=== PATIENT | male | born 1965 | race Caucasian/White ===

== ENCOUNTER 2017-05-06 02:32 | Day surgery (SDC) | payer BC ==
[~2017-05-06] VITALS: Ht 180.3 cm; Wt 101.6 kg
[~2017-05-06 02:32] MED LIST: ALLO-119 PO; AMLO-104 PO; AMO500 PO; ARI10 PO; ATO10 PO; ATOR10TA24 PO; AUG500 PO; AZIT-1 PO; AZIT500T47 PO; BENZ100C4 PO; BENZ200C38; CEP500; CEP500 PO; CEPH-13 PO; COM14R IH; DIC75 PO; DOC100 PO; FLUT16SP20 NS; IBU800 PO; INDO-1 PO; INDO25OR3 PO; LIDO20SO21 MM; LISI-357; LISI-357 PO; LOR5 PO; MAGIC; MULT1CAP41 PO; NAP500 PO; OMEP-153 PO; OMEP-218 PO; OMEP10CA40 PO; PENI-22 PO; PER PO; PRE20 PO; PRED-1 PO; QUET100T29 PO; ROBC PO; SENN8.8S6 PO; SUCR1TAB85 PO; TRA50 PO; Z PACK; ZIPR40CA13 PO; [UNRECOGNIZED DRUG - CODE] GT; [UNRECOGNIZED DRUG - REMARK]; no routine meds
[2017-05-06 12:46] VITALS: BP 118/82
--- NOTE | 2017-05-06 13:01 | Post Operative Progress Note ---
Post Operative Progress Note Date: May 06, 2017 Time: 16:04 Surgeon: alon Anesthesia: dr porter Pre-Op Diagnosis: screening colonoscopy and epigastric pain Post-Op Diagnosis: sigmoid diverticulosis and 4 mm polyp at 25 cm small hiatal hernia and mild gastritis Procedure(s): colonoscopy with polypectomy and egd with biopsy HUSAM CHANEY MD May 06, 2017 13:01
--- NOTE | 2017-05-06 13:01 | Short(Outpt) Discharge Summary ---
Discharge Summary Reason for Hosp/Final Diag: (1) Epigastric pain Hospital Course & Plan: hiatal hernia and mild gastritis (2) Encounter for screening colonoscopy Hospital Course & Plan: sigmoid diverticulosis and 4 mm polyp at 25 cm Departure Discharge to: Home Discharge Instructions Home Meds Reported Medications Allopurinol (ZYLOPRIM) 300 Mg Tablet, 300 MG PO QDAY, TAB 05/04/17 Atorvastatin Calcium (LIPITOR) 10 Mg Tablet, 1 TAB PO QDAY, TAB 05/04/17 Omeprazole Magnesium (PRILOSEC OTC) 20 Mg Tablet.dr, 1 TAB PO QDAY TAKE ONE TABLET BY MOUTH ONCE A DAY 05/01/14 Amlodipine Besylate (Norvasc) 10 Mg Tablet, 10 MG PO DAILY 07/05/12 Discontinued Scripts Sucralfate (CARAFATE) 1 Gm Tablet, 1 GM PO QID, #120 TAB 0 Refills Prov:ALLEY PATEL MD 04/19/17 Benzonatate 100 Mg Cap (TESSALON PERLE 100 MG CAP) 100 Mg Capsule, 100 MG PO TID Y for COUGH, #15 CAP 0 Refills Prov:ALLEY PATEL MD 04/19/17 Azithromycin (ZITHROMAX) 250 Mg Tablet, 0 PO QDAY, #6 TAB 0 Refills Take 2 tablets today, then one daily for 4 more days. Prov:ALLEY PATEL MD 04/19/17 Cephalexin (KEFLEX) 500 Mg Capsule, 500 MG PO TID for infection, #30 CAP TAKE ONE CAPSULE BY MOUTH EVERY SIX HOURS Prov:IBRAHIMA IRENE DO 05/01/14 Diet: High Fiber Activity: As Tolerated HUSAM CHANEY MD May 06, 2017 13:01
[2017-05-06] MEDS ORDERED: LIDOCAINE/SOD BICARB 8.4% SYR ID ONE (13:30)
[2017-05-06] MEDS ORDERED: NORMOSOL R SOLN(*) 1000 ML BAG 1,000 ML IV PRN (13:30)
[2017-05-06] MEDS ORDERED: MIDAZOLAM 2 MG/2 ML VIAL IVP PRN (13:30)
[2017-05-06] MEDS ORDERED: PROPOFOL EMUL(*) 10MG/ML 20 ML 0 ML ONE (14:34)
[2017-05-06] MEDS ORDERED: PROPOFOL EMUL(*) 10MG/ML 20 ML 20 ML ONE ×2 (15:32→15:40)
[2017-05-06 15:59] VITALS: BP 112/85
[2017-05-06 16:14] VITALS: BP 102/54
[2017-05-06 16:15] VITALS: BP 105/72
--- NOTE | 2017-05-07 15:34 | OPERATIVE REPORT 1 ---
EVENT DATE: May 06, 2017 SURGEON: Vaughn Cohen MD ANESTHESIOLOGIST: Tony Laurent MD ANESTHESIA: Sedation. PREOPERATIVE DIAGNOSIS Epigastric pain. POSTOPERATIVE DIAGNOSES 1. Small hiatal hernia. 2. Mild gastritis in the body of the stomach. PROCEDURE PERFORMED Esophagogastroduodenoscopy with biopsy of the stomach. DESCRIPTION OF PROCEDURE The patient was placed in the left lateral decubitus position and given intravenous sedation. The flexible gastroscope was inserted. The esophagus appeared to be normal. It distended nicely. No narrowings. No inflammation. GE junction was at 42 cm and distinct. No narrowing was noted. We entered the stomach. We passed through the stomach into the pylorus and second and third portions of the duodenum, which were normal. The duodenal bulb was normal. The pylorus was normal. The antrum was normal. The body of the stomach in the fundus he had some mild erythema, so biopsies were taken. No ulcerations were noted. He had a small hiatal hernia. The patient tolerated the procedure well with no apparent complication. MTDD
--- NOTE | 2017-05-07 15:45 | OPERATIVE REPORT 1 ---
EVENT DATE: May 06, 2017 SURGEON: Vaughn Cohen MD ANESTHESIOLOGIST: Tony Laurent MD ANESTHESIA: Sedation. PREOPERATIVE DIAGNOSIS Screening colonoscopy. POSTOPERATIVE DIAGNOSES 1. Sigmoid diverticulosis. 2. A 4 mm polyp at 25 cm. PROCEDURE PERFORMED Colonoscopy with polypectomy. DESCRIPTION OF PROCEDURE The patient was placed in the left lateral decubitus position and given intravenous sedation. Rectum exam was unremarkable. A flexible colonoscopy was inserted and advanced to the cecum. He had some thick liquid stool lining the right colon. We irrigated that off the best we could, but some of it was quite adherent and made complete visualization of the colonic mucosa in the right colon difficult. We examined the cecum. No abnormalities were noted. The ileocecal valve was identified. The right colon appeared to be normal. The transverse and descending colon were normal. In the sigmoid colon, he had multiple diverticula. No evidence of diverticulitis. At 25 cm, he had a 4 mm polypoid projection. This was removed with polypectomy snare cautery and retrieved. The rest of the rectum was normal. The scope was retroflexed. That appeared to be normal. The patient will require a repeat colonoscopy in five years if that polyp is, indeed, adenomatous. [place]
== END 2017-05-06 16:30 | disposition home or self-care (01) ==
LOC: OR 02:32
PROVIDERS: ATTEND Surgery
DX: Z12.11 Encounter for screening for malignant neoplasm of colon (principal); D12.6 Benign neoplasm of colon, unspecified; K57.30 Diverticulosis of large intestine without perforation or abscess without bleeding; K44.9 Diaphragmatic hernia without obstruction or gangrene; K29.70 Gastritis, unspecified, without bleeding
CPT/HCPCS: 43239; 45385; 88305; 88344; J2704

== ENCOUNTER → 2017-07-20 | Outpatient (CLI) | payer BC | LOC: AUD 08:30 | PROVIDERS: ATTEND Otolaryngology | DX: H91.90 Unspecified hearing loss, unspecified ear (principal); H93.13 Tinnitus, bilateral; J02.9 Acute pharyngitis, unspecified; F17.290 Nicotine dependence, other tobacco product, uncomplicated | CPT/HCPCS: 92557; 92570 ==